=== PATIENT | male | born 1975 ===

== ENCOUNTER 2019-08-13 10:15 | Day surgery (SDC) | payer OTHER | END 2019-08-13 14:55 | disposition home or self-care (01) | LOC: AMB-ENDOS 10:15 → ADM 13:00 → AMB-ENDOS 13:00 | DX: K62.89 Other specified diseases of anus and rectum (principal); K57.30 Diverticulosis of large intestine without perforation or abscess without bleeding; K64.0 First degree hemorrhoids ==